=== PATIENT | female | born 1980 | race Caucasian/White ===

== ENCOUNTER 2017-03-08 09:39 | Emergency (ER) | payer SELFPAY ==
[~2017-03-08] VITALS: Ht 144.8 cm; Wt 49.9 kg
[~2017-03-08 09:39] MED LIST: AMOXICILLIN AND1 TA2 PO; BROMFED DM COU118 ML PO; FLONASE 50 MCG16 GM
--- OUTSIDE RECORDS SUMMARY | 2017-03-08 09:45 | External Medical Summary Rpt | CCD ---
Author Author , KEESHA Organization KEESHA Address Unknown Phone [email or web address] Purpose Continuity of Care Document - 11-24-2012 through 2016 Results Labs Lab Lab Date Result Refere Interp Status Commen Order Detail nces retati t Range on Treponema pallidum IgG Ab [Presence] in Serum by Immunoassay (12-11-2016 15:45) Trepone NON-VANNA complet ma 017 CTIVE ed pallidu 15:45 m IgG Ab [Presen ce] in Serum by Immunoa ssay Treponema pallidum IgG Ab [Presence] in Serum by Immunoassay (12-11-2016 15:45) COLLECT B. complet OR 017 WHITE, ed 15:45 RN ETHNICI WHITE, complet TY 017 NON-HIS ed 15:45 PANIC PURPOSE DIAGNOS complet OF 017 TIC ed EXAM 15:45 SPECIME BLOOD complet N 017 ed SOURCE 15:45 CHART [id number] complet NUMBER [id number] 68 ed 15:45 Trepone Pending complet ma 017 ed pallidu 15:45 m IgG Ab [Presen ce] in Serum by Immunoa ssay CHLAMYDIA AND GONORRHEA TESTING (12-11-2016 15:30) Chlamyd NEGATIV complet ia 017 E ed trachom 15:30 atis rRNA [Presen ce] in Unspeci fied specime n by Probe & target amplifi cation method Neisser NEGATIV complet ia 017 E ed gonorrh 15:30 oeae rRNA [Presen ce] in Unspeci fied specime n by Probe & target amplifi cation method CHLAMYDIA AND GONORRHEA TESTING (12-11-2016 15:30) COLLECT K. 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 WHITE, complet TY 017 NON-HIS ed 15:30 PANIC KIT complet EXPIRAT 017 017 ed ION 15:30 DATE SYMPTOM NO complet S 017 ed 15:30 REASON REVISIT complet FOR 017 /ANNUAL ed REQUEST 15:30 FAMILY PLANNIN G VISIT SPECIME URINE complet N 017 ed SOURCE 15:30 PREGNAN NO complet T 017 ed 15:30 CHART [id number] complet NUMBER 017 68 ed 15:30 Chlamyd Pending complet ia 017 ed trachom 15:30 atis rRNA [Presen ce] in Unspeci fied specime n by Probe & target amplifi cation method Neisser Pending complet ia 017 ed gonorrh 15:30 oeae rRNA [Presen ce] in Unspeci fied specime n by Probe & target amplifi cation method Influenza virus A+B Ag [Presence] in Unspecified specimen (10-25-2016 18:20) Influen NOT NOT complet za 017 DETECTE DETECTD ed virus A 18:20 D Ag [Presen ce] in Unspeci fied specime n INFLUEN NOT NOT complet ZA B 017 DETECTE DETECTD ed ANTIGEN 18:20 D Streptococcus pyogenes Ag [Presence] in Unspecified specimen (10-25-2016 18:20) Strepto NOT NOTDETE complet coccus 017 [address]E [address]ED ed pyogene 18:20 D s Ag [Presen ce] in Unspeci fied specime n CHLAMYDIA AND GONORRHEA TESTING (11-24-2012 09:30) Chlamyd NEGATIV complet ia 013 E ed trachom 09:30 atis rRNA [Presen ce] in Unspeci fied specime n by Probe & target amplifi cation method Neisser NEGATIV complet ia 013 E ed gonorrh 09:30 oeae rRNA [Presen ce] in Unspeci fied specime n by Probe & target amplifi cation method CHLAMYDIA AND GONORRHEA TESTING (11-24-2012 09:30) COLLECT JA complet OR 013 ed 09:30 ETHNICI WHITE, complet TY 013 NON-HIS ed 09:30 PANIC KIT 08-05-2 2014-03 complet EXPIRAT 013 -31 ed ION 09:30 DATE SYMPTOM YES complet S 013 ed 09:30 REASON INITIAL complet FOR 013 FAMILY ed REQUEST 09:30 PLANNIN G VISIT SPECIME FEMALE complet N 013 ENDOCER ed SOURCE 09:30 VICAL PREGNAN UNKNOWN complet T 013 ed 09:30 CHART [id number] complet NUMBER 013 ed 09:30 Chlamyd Pending complet ia 013 ed trachom 09:30 atis rRNA [Presen ce] in Unspeci fied specime n by Probe & target amplifi cation method Neisser Pending complet ia 013 ed gonorrh 09:30 oeae rRNA [Presen ce] in Unspeci fied specime n by Probe & target amplifi cation method
--- OUTSIDE RECORDS SUMMARY | 2017-03-08 09:45 | External Medical Summary Rpt | CCD ---
Author Author , KEESHA Organization KEEHSA Address Unknown Phone [email or web address] Purpose Continuity of Care Document - 11-24-2012 [...] complet N 017 ed SOURCE 15:45 CHART [id number] complet NUMBER [id number] 68 ed 15:45 Trepone [...] K. 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
--- OUTSIDE RECORDS SUMMARY | 2017-03-08 09:46 | External Medical Summary Rpt | CCD ---
Author Author , KEESHA Organization KEESHA Address Unknown Phone [email or web address] Immunization Name Date Rout CVX Reac Dose Comm Prov Is Faci e tion ent ider Refu lity Give sed n Infl 08-0 Intr 150 0.5 Hist [facility] No [facility] 9-20 amus mL oric ROMEL AID0 a 17 cula al AYMA 3914 Quad r Info N Inj rmat ion - Sour ce Unsp ecif ied Infl 11-2 Intr 140 0.5 Hist [facility] No RITE uenz 5-20 amus mL oric ROMEL AID0 a, 16 cula al AYMA 3914 P-Fr r Info N ee rmat ion - Sour ce Unsp ecif ied
--- OUTSIDE RECORDS SUMMARY | 2017-03-08 09:46 | External Medical Summary Rpt | CCD ---
Author Author , KEESHA Organization KEESHA Address Unknown Phone [email or web address] Immunization Name Date Rout CVX Reac Dose [...]
--- OUTSIDE RECORDS SUMMARY | 2017-03-08 09:46 | External Medical Summary Rpt ---
Author Author KEESHA Edouard, KEESHA [employer] Organization [employer] Address Unknown Phone Unavailable Results Treponema pallidum IgG Ab [Presence] in Serum by Immunoassay Observa Value Referen Units Interpr Notes Date tion ce etation Range COLLECT B. No No No No Dec 11 OR WHITE, informa informa informa informa 2017 RN tion in tion in tion in tion in 3:45 PM source source source source data data data data ETHNICI WHITE, No No No No Dec 11 TY NON-HIS informa informa informa informa 2017 PANIC tion in tion in tion in tion in 3:45 PM source source source source data data data data PURPOSE DIAGNOS No No No No Dec 11 OF TIC informa informa informa informa 2017 EXAM tion in tion in tion in tion in 3:45 PM source source source source data data data data SPECIME BLOOD No No No No Dec 11 N informa informa informa informa 2017 SOURCE tion in tion in tion in tion in 3:45 PM source source source source data data data data CHART [id number] No No No No Dec 11 NUMBER 68 informa informa informa informa 2017 tion in tion in tion in tion in 3:45 PM source source source source data data data data Trepone NON-VANNA No No No METHOD Dec [address] informa informa informa OF 2017 pallidu tion in tion in tion in ANALYSI 3:45 PM m IgG source source source S: Ab data data data EIANORM [Presen AL ce] in RANGE: Serum NON-VANNA by CTIVE\. Immunoa br\This ssay report contain s patient informa tion that must be protect ed in accorda nce with the Health Insuran ce Portabi lity and Account ability Act. Treponema pallidum IgG Ab [Presence] in Serum by Immunoassay Observa Value Referen Units Interpr Notes Date tion ce etation Range COLLECT B. No No No No Dec 11 OR WHITE, informa informa informa informa 2017 RN tion in tion in tion in tion in 3:45 PM source source source source data data data data ETHNICI WHITE, No No No No Dec 11 TY NON-HIS informa informa informa informa 2017 PANIC tion in tion in tion in tion in 3:45 PM source source source source data data data data PURPOSE DIAGNOS No No No No Dec 11 OF TIC informa informa informa informa 2017 EXAM tion in tion in tion in tion in 3:45 PM source source source source data data data data SPECIME BLOOD No No No No Dec 11 N informa informa informa informa 2017 SOURCE tion in tion in tion in tion in 3:45 PM source source source source data data data data CHART [id number] No No No No Dec 11 NUMBER 68 informa informa informa informa 2017 tion in tion in tion in tion in 3:45 PM source source source source data data data data Trepone Pending No No No \.br\Dec 11 ma informa informa informa is 2017 pallidu tion in tion in tion in report 3:45 PM m IgG source source source contain Ab data data data s [Presen patient ce] in Serum informa by bertha Immunoa that ssay must be protect ed in accorda nce with the Health Insuran ce Portabi lity and Account ability Act. CHLAMYDIA AND GONORRHEA TESTING Observa Value Referen Units Interpr Notes Date tion ce etation Range COLLECT K. 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 in tion in tion in 3:30 PM source source source source data data data data ETHNICI WHITE, No No No No Dec 11 TY NON-HIS informa informa informa informa 2017 PANIC tion in tion in tion in tion in 3:30 PM source source source source data data data data KIT No No No No Dec 11 EXPIRAT 017 informa informa informa informa 2017 ION tion in tion in tion in tion in 3:30 PM DATE source source source source data data data data SYMPTOM NO No No No No Dec 11 S informa informa informa informa 2017 tion in tion in tion in tion in 3:30 PM source source source source data data data data REASON REVISIT No No No No Dec 11 FOR /ANNUAL informa informa informa informa 2017 REQUEST FAMILY tion in tion in tion in tion in 3:30 PM source source source source PLANNIN data data data data G VISIT SPECIME URINE No No No No Dec 11 N informa informa informa informa 2017 SOURCE tion in tion in tion in tion in 3:30 PM source source source source data data data data PREGNAN NO No No No No Dec 11 T informa informa informa informa 2017 tion in tion in tion in tion in 3:30 PM source source source source data data data data CHART [id number] No No No No Dec 11 NUMBER 68 informa informa informa informa 2017 tion in tion in tion in tion in 3:30 PM source source source source data data data data Chlamyd NEGATIV No No No NEGATIV Dec 11 ia E informa informa informa E 2017 trachom tion in tion in tion in RESULT= 3:30 PM atis source source source WITHIN rRNA data data data NORMAL [Presen ce] in LIMITSP Unspeci OSITIVE fied specime RESULT= n by Probe & ABNORMA target LEQUIVO ARACELIS amplifi RESULT= cation method INDETER MINATEU NSATISF ACTORY RESULT= INVALID Neisser NEGATIV No No No NEGATIV Dec 11 ia E informa informa informa E 2017 gonorrh tion in tion in tion in RESULT= 3:30 PM oeae source source source WITHIN rRNA data data data NORMAL [Presen ce] in LIMITSP Unspeci OSITIVE fied specime RESULT= n by Probe & ABNORMA target LEQUIVO ARACELIS amplifi RESULT= cation method INDETER MINATEU NSATISF ACTORY RESULT= INVALID THE APTIMA COMBO 2 ASSAY IS NOT INTENDE D FOR THE EVALUAT ION OF SUSPECT EDSEXUA L ABUSE OR FOR OTHER MEDICO- LEGAL INDICAT IONS. FOR THOSE PATIENT S FORWHOM A FALSE POSITIV E RESULT MAY HAVE ADVERSE PSYCHO- SOCIAL IMPACT, THE [facility] MMENDS RETESTI NG.\.br \This report contain s patient informa tion that must be protect ed in accorda nce with the Health Insuran ce Portabi lity and Account ability Act. CHLAMYDIA AND GONORRHEA TESTING Observa Value Referen Units Interpr Notes Date tion ce etation Range COLLECT K. 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 in tion in tion in tion in 3:30 PM source source source source data data data data ETHNICI WHITE, No No No No Dec 11 TY NON-HIS informa informa informa informa 2017 PANIC tion in tion in tion in tion in 3:30 PM source source source source data data data data KIT No No No No Dec 11 EXPIRAT 017 informa informa informa informa 2017 ION tion in tion in tion in tion in 3:30 PM DATE source source source source data data data data SYMPTOM NO No No No No Dec 11 S informa informa informa informa 2017 tion in tion in tion in tion in 3:30 PM source source source source data data data data REASON REVISIT No No No No Dec 11 FOR /ANNUAL informa informa informa informa 2017 REQUEST FAMILY tion in tion in tion in tion in 3:30 PM source source source source PLANNIN data data data data G VISIT SPECIME URINE No No No No Dec 11 N informa informa informa informa 2017 SOURCE tion in tion in tion in tion in 3:30 PM source source source source data data data data PREGNAN NO No No No No Dec 11 T informa informa informa informa 2017 tion in tion in tion in tion in 3:30 PM source source source source data data data data CHART [id number] No No No No Dec 11 NUMBER 68 informa informa informa informa 2017 tion in tion in tion in tion in 3:30 PM source source source source data data data data Chlamyd Pending No No No No Dec 11 ia informa informa informa informa 2017 trachom tion in tion in tion in tion in 3:30 PM atis source source source source rRNA data data data data [Presen ce] in Unspeci fied specime n by Probe & target amplifi cation method Neisser Pending No No No \.br\Dec 11 ia informa informa informa is 2017 gonorrh tion in tion in tion in report 3:30 PM oeae source source source contain rRNA data data data s [Presen patient ce] in Unspeci informa fied tion specime that n by must be Probe & target protect ed in amplifi accorda cation nce method with the Health Insuran ce Portabi lity and Account ability Act. Influenza virus A+B Ag [Presence] in Unspecified specimen Observa Value Referen Units Interpr Notes Date tion ce etation Range Influen NOT NOT No No No Oct 25 za DETECTE DETECTD informa informa informa 2017 virus A D tion in tion in tion in 6:20 PM Ag source source source [Presen data data data ce] in Unspeci fied specime n INFLUEN NOT NOT No No LOT # Oct 25 ZA B DETECTE DETECTD informa informa EXP 2017 ANTIGEN D tion in tion in DATE 6:20 PM source source data data Streptococcus pyogenes Ag [Presence] in Unspecified specimen Observa Value Referen Units Interpr Notes Date tion ce etation Range Strepto NOT NOTDETE No No LOT # Oct 25 coccus DETECTE CTED informa informa N/A EXP 2017 pyogene D tion in tion in DATE 6:20 PM s Ag source source N/A [Presen data data ce] in Unspeci fied specime n CHLAMYDIA AND GONORRHEA TESTING Observa Value Referen Units Interpr Notes Date tion ce etation Range COLLECT JA No No No No Nov 24 OR informa informa informa informa 2013 tion in tion in tion in tion in 9:30 AM source source source source data data data data ETHNICI WHITE, No No No No Nov 24 TY NON-HIS informa informa informa informa 2013 PANIC tion in tion in tion in tion in 9:30 AM source source source source data data data data KIT 2013-06 No No No No Nov 24 EXPIRA informa informa informa informa 2013 ION tion in tion in tion in tion in 9:30 AM DATE source source source source data data data data SYMPTOM YES No No No No Nov 24 S informa informa informa informa 2013 tion in tion in tion in tion in 9:30 AM source source source source data data data data REASON INITIAL No No No No Nov 24 FOR FAMILY informa informa informa informa 2013 REQUEST tion in tion in tion in tion in 9:30 AM PLANNIN source source source source G VISIT data data data data SPECIME FEMALE No No No No Nov 24 N ENDOCER informa informa informa informa 2013 SOURCE VICAL tion in tion in tion in tion in 9:30 AM source source source source data data data data PREGNAN UNKNOWN No No No No Nov 24 T informa informa informa informa 2013 tion in tion in tion in tion in 9:30 AM source source source source data data data data CHART [id number] No No No No Nov 24 NUMBER informa informa informa informa 2013 tion in tion in tion in tion in 9:30 AM source source source source data data data data Chlamyd NEGATIV No No No NEGATIV Nov 24 ia E informa informa informa E 2013 trachom tion in tion in tion in RESULT= 9:30 AM atis source source source WITHIN rRNA data data data NORMAL [Presen ce] in LIMITSP Unspeci OSITIVE fied specime RESULT= n by Probe & ABNORMA target LEQUIVO ARACELIS amplifi RESULT= cation method INDETER MINATEU NSATISF ACTORY RESULT= INVALID Neisser NEGATIV No No No NEGATIV Nov 24 ia E informa informa informa E 2013 gonorrh tion in tion in tion in RESULT= 9:30 AM oeae source source source WITHIN rRNA data data data NORMAL [Presen ce] in LIMITSP Unspeci OSITIVE fied specime RESULT= n by Probe & ABNORMA target LEQUIVO ARACELIS amplifi RESULT= cation method INDETER MINATEU NSATISF ACTORY RESULT= INVALID THE APTIMA COMBO 2 ASSAY IS NOT INTENDE D FOR THE EVALUAT ION OF SUSPECT EDSEXUA L ABUSE OR FOR OTHER MEDICO- LEGAL INDICAT IONS. FOR THOSE PATIENT S FORWHOM A FALSE POSITIV E RESULT MAY HAVE ADVERSE PSYCHO- SOCIAL IMPACT, THE CDCR[facility]O MMENDS RETESTI NG.\.br \This report contain s patient informa tion that must be protect ed in accorda nce with the Health Insuran ce Portabi lity and Account ability Act. CHLAMYDIA AND GONORRHEA TESTING Observa Value Referen Units Interpr Notes Date tion ce etation Range COLLECT JA No No No No Nov 24 OR informa informa informa informa 2013 tion in tion in tion in tion in 9:30 AM source source source source data data data data ETHNICI WHITE, No No No No Nov 24 TY NON-HIS informa informa informa informa 2013 PANIC tion in tion in tion in tion in 9:30 AM source source source source data data data data KIT 2013-06 No No No No Nov 24 EXPIRAT -31 informa informa informa informa 2013 ION tion in tion in tion in tion in 9:30 AM DATE source source source source data data data data SYMPTOM YES No No No No Nov 24 S informa informa informa informa 2013 tion in tion in tion in tion in 9:30 AM source source source source data data data data REASON INITIAL No No No No Nov 24 FOR FAMILY informa informa informa informa 2013 REQUEST tion in tion in tion in tion in 9:30 AM PLANNIN source source source source G VISIT data data data data SPECIME FEMALE No No No No Nov 24 N ENDOCER informa informa informa informa 2013 SOURCE VICAL tion in tion in tion in tion in 9:30 AM source source source source data data data data PREGNAN UNKNOWN No No No No Nov 24 T informa informa informa informa 2013 tion in tion in tion in tion in 9:30 AM source source source source data data data data CHART [id number] No No No No Nov 24 NUMBER informa informa informa informa 2013 tion in tion in tion in tion in 9:30 AM source source source source data data data data Chlamyd Pending No No No No Nov 24 ia informa informa informa informa 2013 trachom tion in tion in tion in tion in 9:30 AM atis source source source source rRNA data data data data [Presen ce] in Unspeci fied specime n by Probe & target amplifi cation method Neisser Pending No No No \.br\Nov 24 ia informa informa informa is 2013 gonorrh tion in tion in tion in report 9:30 AM oeae source source source contain rRNA data data data s [Presen patient ce] in Unspeci informa fied tion specime that n by must be Probe & target protect ed in amplifi accorda cation nce method with the Health Insuran ce Portabi lity and Account ability Act.
--- OUTSIDE RECORDS SUMMARY | 2017-03-08 09:46 | External Medical Summary Rpt ---
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
[2017-03-08 10:08] VITALS: BP 144/93
[2017-03-08] MEDS ORDERED: AUGMENTIN 875-1 EACH PO (10:14)
[2017-03-08] MEDS ORDERED: FLONASE 50 MCG16 GM (10:14)
[2017-03-08] MEDS ORDERED: MEDROL 4MG. DOSE4 MG PO (10:14)
[2017-03-08] MEDS ORDERED: BROMFED DM COU118 ML PO (10:14)
[2017-03-08] MEDS ORDERED: ZOFRAN ODT4 MG PO (10:14)
[2017-03-08] MEDS ORDERED: CLARITIN 10MG T10 MG PO (10:14)
--- NOTE | 2017-03-08 10:15 | Urgent Treatment Center Report ---
History of Present Issue Date/Time Seen by Provider 03/08/17 1000 Visit Reason Pt arrived:Walked Presenting Problem:PT C/O HEAD CONGESTION, N/V, BODY ACHES AND CHILLS WITH FEVERS. Location if Accident: Onset of symptoms date/time:/ or onset unknown for:MEDICAL HX UNKNOWN Have you (or family members/close friends) recently traveled outside the [place]? N If Yes, where/when: Have you had exposure to infectious disease within the past month? TB? Other? Specify: Patient state that her face is sore, having body aches chills and fever State that she is feeling pain and pressure. State that she feels "like her head is going to explode" State that she has not been feeling well for several days State that she was sick about week ago then got better and now this has came back and worse than before State that she is starting to have pain in her teeth too and thinks it is from her nose being so stopped up ALLERGIES Coded Allergies: No Known Allergies (10/25/16) History Medical History General CAD? No Angina: No [place]: No Hypertension? No Hyperlipidemia? No CHF? No DVT? No PE? No COPD? No Asthma? No Anemia? No GERD? No Gastric ulcers? No GI Bleed? No Hernia? No Thyroid Problems? No Hypothyroidism? No CVA? No Seizures? No Diabetes? No Renal Insuffiency? No UTI? No Stones? No BPH? No GB Disease: No Nephritic Syndrome? No Asplenia? No Hepatitis? No Sickle Cell Disease? No Arthritis? No Migraines? No Cataracts? No Glaucoma? No MRSA? No HIV? No TB? No Anxiety? No Depression? No Cancer? No More? 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 Respiratory cough, denies shortness of breath, denies wheezing Gastrointestinal denies nausea Musculoskeletal other (body aches) Skin denies no symptoms reported Psychiatric/Neurological headache Physical Exam Vital Signs Vital Signs Date Time Temp Pulse Resp B/P Pulse O2 O2 Flow FiO2 Ox Delivery Rate 03/08 1008 99.6 82 20 144/93 100 03/08 0956 99.6 82 20 144/93 100 General Appearance Patient appears ill, dressed appropriately for weather with mask on due to having flu like symptoms Ear, Nose, Throat sinus pain/drainage, nasal congestion, Throat red, irritated, drainage noted Tenderness noted maxillary sinsuses and appears Puffy and mildly swollen, bilateral ear no redness TM buldging clear Respiratory Status Yes: trachea midline, chest symmetrical, non tender chest. No: respiratory distress. Lung Sounds bilateral: normal breath sounds, lungs clear. Cardiovascular normal exam, regular rate/rhythm, no peripheral edema Gastrointestinal normal bowel sounds, normal exam, non tender Neurologic alert, normal exam, oriented x 3 Medical Decision Making LABS/Meds/Orders Pt receiving controlled substance in ED? No Results/Orders Laboratory Tests 03/08/17 1000: Influenza Type A Ag NOT DETECTED, Influenza Type B Ag NOT DETECTED Orders Procedure Date/time Status [facility] FLU A,B 03/08 1000 Complete Departure Departure Time of Disposition 1012 Disposition DC Home or Self Care(routine) Clinical Impression Primary Impression: Sinusitis Qualifiers: Sinusitis location: maxillary Chronicity: unspecified Qualified Code: J32.0 - Chronic maxillary sinusitis Condition STABLE Patient Instructions DI for Fever (Symptom) -- Adult, DI for Nausea -- Adult, DI for Sinusitis, Sinus Headache, Sinusitis Additional Instructions * Monitor Temp. Tylenol and/or Ibuprofen as needed. ER if fever is no less than 101 despite alternating Tylenol and Ibuprofen * Encourage fluids, water, Gatorade, powerade, pedialyte if /toddler/or child * Warm salt water gargles for throat irritation *Warm fluids *Sore throat lozenges *Sleep elevated *humidifier or vaporizer Lots of rest Increase fluids, water, Gatorade, powerade *Flonase 2 sprays each nostril daily but may take 2-3 days to notice improvement with it *Bromfed may cause drowsiness. Know how it effect you or your child. Before driving, caring for small children or sending your child to school Follow up IMMEDIATELY for new or worsening of symptoms OR no noticeable improvement over the next 48-72 hours. 911 immediately for any life threatening symptoms such as chest pain or difficulty breathing Discharge Counseling Counseled pt/family regarding diagnosis, test results, medications/RX, home care, follow up needs Prescriptions Current Visit Scripts Amoxicillin/Potassium Clav (Augmentin 045-125 Tablet) 1 EACH PO BID #14 TAB D-METHORPHAN HB/P-EPD HCL/BPM (Bromfed Dm Cough Syrup) 10 ML PO Q4HP PRN cough #150 SYR Loratadine (Claritin 10MG) 10 MG PO DAILY #30 TAB Fluticasone Propionate (Flonase 50 Mcg Nasal [place]) 2 SPRAY NA DAILY #1 BOT Methylprednisolone (Medrol Dose Juan) 4 MG PO UD #1 JUAN TAKE DIRECTED ON PACKAGING Ondansetron (Zofran 4MG Odt) 4 MG PO Q6HP PRN NAUSEA AND VOMITING #20 TAB at 1014
--- NOTE | 2017-03-08 10:15 | [facility] Report ---
History of Present Issue Date/Time Seen by Provider 03/08/17 1000 Visit Reason Pt arrived:Walked Presenting Problem:PT C/O HEAD CONGESTION, N/V, BODY ACHES AND CHILLS WITH FEVERS. Location if Accident: Onset of symptoms date/time:/ or onset unknown for:MEDICAL HX UNKNOWN Have you (or family members/close friends) recently traveled outside the [place]? N If Yes, where/when: Have you had exposure to infectious disease within the past month? TB? Other? Specify: Patient state that her face is sore, having body aches chills and fever State that she is feeling pain and pressure. State that she feels "like her head is going to explode" State that she has not been feeling well for several days State that she was sick about week ago then got better and now this has came back and worse than before State that she is starting to have pain in her teeth too and thinks it is from her nose being so stopped up ALLERGIES Coded Allergies: No Known Allergies (10/25/16) History Medical History General CAD? No Angina: No [place]: No Hypertension? No Hyperlipidemia? No CHF? No DVT? No PE? No COPD? No Asthma? No Anemia? No GERD? No Gastric ulcers? No GI Bleed? No Hernia? No Thyroid Problems? No Hypothyroidism? No CVA? No Seizures? No Diabetes? No Renal Insuffiency? No UTI? No Stones? No BPH? No GB Disease: No Nephritic Syndrome? No Asplenia? No Hepatitis? No Sickle Cell Disease? No Arthritis? No Migraines? No Cataracts? No Glaucoma? No MRSA? No HIV? No TB? No Anxiety? No Depression? No Cancer? No More? No Immunization HX DT/Tetanus 1-4 Years Ago Surgical Hx Previous Surgery?Y X 3 D&C X2 [employer]ER Hx LMP On Depo Med-LMP Unknown Social History Smoking Hx Smoker: Current Every Day Smoker Tobacco: Yes Type Cigarettes Alcohol Alcohol: No Review of Systems All Other Systems Reviewed and Negative Constitutional chills, fever, weakness ENT ear pain, nose congestion, throat pain. Respiratory cough, denies shortness of breath, denies wheezing Gastrointestinal denies nausea Musculoskeletal other (body aches) Skin denies no symptoms reported Psychiatric/Neurological headache Physical Exam Vital Signs Vital Signs Date Time Temp Pulse Resp B/P Pulse O2 O2 Flow FiO2 Ox Delivery Rate 03/08 1008 99.6 82 20 144/93 100 03/08 0956 99.6 82 20 144/93 100 General Appearance Patient appears ill, dressed appropriately for weather with mask on due to having flu like symptoms Ear, Nose, Throat sinus pain/drainage, nasal congestion, Throat red, irritated, drainage noted Tenderness noted maxillary sinsuses and appears Puffy and mildly swollen, bilateral ear no redness TM buldging clear Respiratory Status Yes: trachea midline, chest symmetrical, non tender chest. No: respiratory distress. Lung Sounds bilateral: normal breath sounds, lungs clear. Cardiovascular normal exam, regular rate/rhythm, no peripheral edema Gastrointestinal normal bowel sounds, normal exam, non tender Neurologic alert, normal exam, oriented x 3 Medical Decision Making LABS/Meds/Orders Pt receiving controlled substance in ED? No Results/Orders Laboratory Tests 03/08/17 1000: Influenza Type A Ag NOT DETECTED, Influenza Type B Ag NOT DETECTED Orders Procedure Date/time Status [facility] FLU A,B 03/08 1000 Complete Departure Departure Time of Disposition 1012 Disposition DC Home or Self Care(routine) Clinical Impression Primary Impression: Sinusitis Qualifiers: Sinusitis location: maxillary Chronicity: unspecified Qualified Code: J32.0 - Chronic maxillary sinusitis Condition STABLE Patient Instructions DI for Fever (Symptom) -- Adult, DI for Nausea -- Adult, DI for Sinusitis, Sinus Headache, Sinusitis Additional Instructions * Monitor Temp. Tylenol and/or Ibuprofen as needed. ER if fever is no less than 101 despite alternating Tylenol and Ibuprofen * Encourage fluids, water, Gatorade, powerade, pedialyte if /toddler/or child * Warm salt water gargles for throat irritation *Warm fluids *Sore throat lozenges *Sleep elevated *humidifier or vaporizer Lots of rest Increase fluids, water, Gatorade, powerade *Flonase 2 sprays each nostril daily but may take 2-3 days to notice improvement with it *Bromfed may cause drowsiness. Know how it effect you or your child. Before driving, caring for small children or sending your child to school Follow up IMMEDIATELY for new or worsening of symptoms OR no noticeable improvement over the next 48-72 hours. 911 immediately for any life threatening symptoms such as chest pain or difficulty breathing Discharge Counseling Counseled pt/family regarding diagnosis, test results, medications/RX, home care, follow up needs Prescriptions Current Visit Scripts Amoxicillin/Potassium Clav (Augmentin 385-125 Tablet) 1 EACH PO BID #14 TAB D-METHORPHAN HB/P-EPD HCL/BPM (Bromfed Dm Cough Syrup) 10 ML PO Q4HP PRN cough #150 SYR Loratadine (Claritin 10MG) 10 MG PO DAILY #30 TAB Fluticasone Propionate (Flonase 50 Mcg Nasal [place]) 2 SPRAY NA DAILY #1 BOT Methylprednisolone (Medrol Dose Juan) 4 MG PO UD #1 JUAN TAKE DIRECTED ON PACKAGING Ondansetron (Zofran 4MG Odt) 4 MG PO Q6HP PRN NAUSEA AND VOMITING #20 TAB at 1014
== END 2017-03-08 10:22 | disposition home or self-care (01) ==
LOC: UTC 09:39
DX: J32.0 Chronic maxillary sinusitis (principal); F17.210 Nicotine dependence, cigarettes, uncomplicated